=== PATIENT | female | born 1975 | race American Indian/Alaskan Native ===

== ENCOUNTER 2017-09-18 21:45 | Emergency (ER) | payer MEDICAID ==
[2017-09-18 22:50] LABS: Hematocrit 39.4 % (30.3-42.9); Hemoglobin 13.3 gm/dl (10.1-14.3); Mean Corpuscular HGB Conc 34 % (30-34); Mean Corpuscular Hemoglobin 30 pg (28-32); Mean Corpuscular Volume 89 fl (79-97); Platelet Count 207 K/mm3 (140-440); Red Blood Count 4.44 M/mm3 (3.65-5.03); Red Cell Distribution Width 13.7 % (13.2-15.2)
[2017-09-18 23:01] LABS: Alanine Aminotransferase 12 units/L (7-56); Albumin 3.6 g/dL (3.9-5); BUN/Creatinine Ratio 13; Blood Urea Nitrogen 9 mg/dL (7-17); Calcium 8.3 mg/dL (8.4-10.2); Hemolysis Index 6
[2017-09-18 23:16] LABS: Basophils % (Manual) 0 % (0.0-1.8); Total Cells Counted 100
[2017-09-18 23:17] LABS: Anisocytosis 1+
--- NOTE | 2017-09-19 00:28 | XRay Report ---
FINAL REPORT EXAM: XR CHEST ROUTINE 2V HISTORY: chest congestion COMPARISON: None available. FINDINGS:: Frontal and lateral views of the chest obtained. Cardiac silhouette is within normal limits. No focal consolidation or effusion. No pneumothorax. Visualized bony thorax is grossly intact. IMPRESSION:: No acute findings.
--- NOTE | 2017-09-19 00:29 | XRay Report ---
FINAL REPORT EXAM: XR SINUSES 3+V HISTORY: sinus congestion and drainage COMPARISON: None available. FINDINGS: Four total images the sinuses obtained. Frontal sinuses are aplastic. Mild mucosal thickening the floors of the maxillary sinuses. Sphenoid sinuses are grossly clear. IMPRESSION: Mild mucosal thickening the floors of the maxillary sinuses.
--- NOTE | 2017-09-19 07:31 | Emergency Department Report ---
HPI - General Chief Complaint: Upper Respiratory Infection Time Seen by Provider: 09/19/17 07:29 - HPI HPI: Patient reports that she's been having an sinus infection, productive greenish yellow sputum for one week. Report facial pain at 9 out of 10 and aching or pressure. Denies any headache. Denies any nausea or vomiting. Denies any shortness of breath or chest pain. Denies any fever or chills. Over-the- counter cold or cough medication taken without any relief. ED Past Medical Hx - Past Medical History Previous Medical History?: Yes Hx Liver Disease: Yes (Hepatitis B 16 Years ago) Hx Headaches / Migraines: Yes Additional medical history: Hypothyroid, Sinus Problems - Surgical History Past Surgical History?: Yes Hx Coronary Stent: No Hx Open Heart Surgery: No Hx Pacemaker: No Hx Internal Defibrillator: No Hx Cholecystectomy: No Hx Appendectomy: No Hx Breast Surgery: No Additional Surgical History: Tubaligation 2000 - Family History Family history: hypertension - Social History Smoking Status: Former Smoker Substance Use Type: None - Medications Home Medications: Home Medications Medication Instructions Recorded Confirmed Last Taken Type Azithromycin [Zithromax Tri-Rocael] 500 mg PO QAM 3 Days #3 tablet 09/19/17 Unknown Rx Cetirizine HCl [ZyrTEC] 10 mg PO QAM 14 Days #14 capsule 09/19/17 Unknown Rx Fluticasone [Flonase] 1 spray NS QDAY 14 Days #1 bottle 09/19/17 Unknown Rx Ibuprofen [Motrin] 600 mg PO Q8H PRN 4 Days #12 tablet 09/19/17 Unknown Rx guaiFENesin/CODEINE [Robitussin AC] 10 ml PO QHS PRN 5 Days #50 09/19/17 Unknown Rx oral.liqd ED Review of Systems ROS: Stated complaint: FLU SYMPTOMS Other details as noted in HPI Comment: All other systems reviewed and negative Constitutional: no symptoms reported Eyes: denies: eye pain, eye discharge ENT: congestion. denies: ear pain, throat pain Respiratory: cough. denies: orthopnea, shortness of breath, SOB with exertion, SOB at rest, stridor, wheezing Cardiovascular: denies: chest pain, palpitations, dyspnea on exertion, orthopnea , edema, syncope, paroxysmal nocturnal dyspnea Gastrointestinal: denies: abdominal pain, nausea, vomiting, diarrhea, constipation, hematemesis Musculoskeletal: myalgia. denies: back pain, joint swelling, arthralgia Skin: denies: rash Neurological: denies: headache, weakness, abnormal gait Physical Exam - Physical Exam Vital Signs: Vital Signs 09/18/17 22:03 Temperature 98.2 F Pulse Rate 78 Respiratory 16 Rate Blood Pressure 131/83 Blood Pressure 131/83 [Right] O2 Sat by Pulse 98 Oximetry Vital Signs 09/18/17 09/19/17 22:03 09:20 Temperature 98.2 F 98.1 F Pulse Rate 78 73 Respiratory 16 16 Rate Blood Pressure 131/83 Blood Pressure 131/83 151/97 [Right] O2 Sat by Pulse 98 95 Oximetry General: This is a 42-year-old female well-nourished well-developed in no acute distress. Physical Exam: Head: Normocephalic atraumatic Ears:BIateral TM congested without erythema and loss of bony landmarks. Caden EAC with normal exam. No mastoid bone tenderness. Mouth: Moist, no pharyngeal erythema or exudate . No tonsillar erythema or exudate. UVULA midline and oral airways patent. No peritonsillar abscess Neck: Nontender to palpate, supple, normal range of motion. No adenopathy. No c- spine tenderness. Nose: Bilateral nasal mucosa congested with clear drainage. Maxillary and frontal sinuses tender to palpate. Eyes: Sclerae and conjunctiva without injection. Bilateral pupils equal and reactive to light. Bilateral lids are normal. Normal accommodation.BEOMI Lungs: Clear to auscultate bilaterally, no rhonchi wheezes or rales. Normal work of breathing and no chest wall tenderness. Dry cough CV: S1, S2. Regular rate and rhythm negative murmur. Capillary refill is less than 3 seconds Skin: Clean dry and intact, no rashes or lesions Psych: Normal mood and behavior ED Course Vital Signs 09/18/17 22:03 Temperature 98.2 F Pulse Rate 78 Respiratory 16 Rate Blood Pressure 131/83 Blood Pressure 131/83 [Right] O2 Sat by Pulse 98 Oximetry Vital Signs 09/18/17 09/19/17 22:03 09:20 Temperature 98.2 F 98.1 F Pulse Rate 78 73 Respiratory 16 16 Rate Blood Pressure 131/83 Blood Pressure 131/83 151/97 [Right] O2 Sat by Pulse 98 95 Oximetry - Reevaluation(s) Reevaluation #1: 09/19/17 09:18 Patient stable throughout ED stay ED Medical Decision Making - Lab Data Result diagrams: 09/18/17 22:32 09/18/17 22:32 Vital Signs 09/18/17 22:03 Temperature 98.2 F Pulse Rate 78 Respiratory 16 Rate Blood Pressure 131/83 Blood Pressure 131/83 [Right] O2 Sat by Pulse 98 Oximetry Lab Results 09/18/17 09/18/17 Range/Units 22:32 22:32 WBC 4.4 L (4.5-11.0) K/mm3 RBC 4.44 (3.65-5.03) M/mm3 Hgb 13.3 (10.1-14.3) gm/dl Hct 39.4 (30.3-42.9) % MCV 89 (79-97) fl MCH 30 (28-32) pg MCHC 34 (30-34) % RDW 13.7 (13.2-15.2) % Plt Count 207 (140-440) K/mm3 Add Manual Diff Complete Total Counted 100 Seg Neutrophils % Hide Worker Seg Neuts % (Manual) 41.0 (40.0-70.0) % Band Neutrophils % 0 % Lymphocytes % (Manual) 48.0 H (13.4-35.0) % Reactive Lymphs % (Man) 0 % Monocytes % (Manual) 10.0 H (0.0-7.3) % Eosinophils % (Manual) 1.0 (0.0-4.3) % Basophils % (Manual) 0 (0.0-1.8) % Metamyelocytes % 0 % Myelocytes % 0 % Promyelocytes % 0 % Blast Cells % 0 % Nucleated RBC % Not Reportable Seg Neutrophils # Man 1.8 (1.8-7.7) K/mm3 Band Neutrophils # 0.0 K/mm3 Lymphocytes # (Manual) 2.1 (1.2-5.4) K/mm3 Abs React Lymphs (Man) 0.0 K/mm3 Monocytes # (Manual) 0.4 (0.0-0.8) K/mm3 Eosinophils # (Manual) 0.0 (0.0-0.4) K/mm3 Basophils # (Manual) 0.0 (0.0-0.1) K/mm3 Metamyelocytes # 0.0 K/mm3 Myelocytes # 0.0 K/mm3 Promyelocytes # 0.0 K/mm3 Blast Cells # 0.0 K/mm3 WBC Morphology Not Reportable Hypersegmented Neuts Not Reportable Hyposegmented Neuts Not Reportable Hypogranular Neuts Not Reportable Smudge Cells Not Reportable Toxic Granulation Not Reportable Toxic Vacuolation Not Reportable Dohle Bodies Not Reportable Pelger-Huet Anomaly Not Reportable Kwan Rods Not Reportable Platelet Estimate Appears normal Clumped Platelets Not Reportable Plt Clumps, EDTA Not Reportable Large Platelets Not Reportable Giant Platelets Not Reportable Platelet Satelliting Not Reportable Plt Morphology Comment Not Reportable RBC Morphology Not Reportable Dimorphic RBCs Not Reportable Polychromasia Not Reportable Hypochromasia Not Reportable Poikilocytosis Not Reportable Anisocytosis 1+ Microcytosis Not Reportable Macrocytosis Not Reportable Spherocytes Not Reportable Pappenheimer Bodies Not Reportable Sickle Cells Not Reportable Target Cells Not Reportable Tear Drop Cells Not Reportable Ovalocytes Not Reportable Helmet Cells Not Reportable Stephens-Ovett Bodies Not Reportable Ulster Rings Not Reportable Yohannes Cells Not Reportable Bite Cells Not Reportable Crenated Cell Not Reportable Elliptocytes Not Reportable Acanthocytes (Spur) Not Reportable Rouleaux Not Reportable Hemoglobin C Crystals Not Reportable Schistocytes Not Reportable Malaria parasites Not Reportable Burt Bodies Not Reportable Hem Pathologist Commnt No Sodium 141 (137-145) mmol/L Potassium 4.0 (3.6-5.0) mmol/L Chloride 103.6 (98-107) mmol/L Carbon Dioxide 28 (22-30) mmol/L Anion Gap 13 mmol/L BUN 9 (7-17) mg/dL Creatinine 0.7 (0.7-1.2) mg/dL Estimated GFR > 60 ml/min BUN/Creatinine Ratio 13 % Glucose 124 H (65-100) mg/dL Calcium 8.3 L (8.4-10.2) mg/dL Total Bilirubin 0.20 (0.1-1.2) mg/dL AST 15 (5-40) units/L ALT 12 (7-56) units/L Alkaline Phosphatase 60 (35-129) units/L Total Protein 7.0 (6.3-8.2) g/dL Albumin 3.6 L (3.9-5) g/dL Albumin/Globulin Ratio 1.1 % - Radiology Data Radiology results: report reviewed Chest x-ray revealed no acute cardiopulmonary findings. X-ray of sinuses Patient with mild mucosal thickening in the maxillary sinus - Medical Decision Making ED course: Patient here presented or respiratory symptoms. She is having nasal congestion, cough and that's been ongoing. Patient had chest x-ray which revealed no cardiopulmonary abnormality. X-ray of nasal sinuses reveal mucosal thickening in maxillary sinus. Patient with tenderness to palpate her sinus. Patient found to have sinusitis, cough coughing adult and pharyngitis. Labs with BMP for calcium at 8.3 and albumin is 3.4. Blood glucose mildly elevated at 124. CBC with white count of 4.4 which is slightly decreased.. Gusted patient that she'll need to follow up with primary care to have repeat lab work done because she has no calcium and albumin and also discussed with her her x- ray findings and diagnosis. She voiced understanding and patient discharged home with prescriptions for Zyrtec, Flonase, Tri-Rocael and guaifenesin with codeine. Critical care attestation.: If time is entered above; I have spent that time in minutes in the direct care of this critically ill patient, excluding procedure time. 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
[2017-09-19 09:21] VITALS: BP 151/97
== END 2017-09-19 09:30 | disposition home or self-care (01) ==
LOC: ED 21:45
DX: J01.90 Acute sinusitis, unspecified (principal); B96.89 Other specified bacterial agents as the cause of diseases classified elsewhere; J02.9 Acute pharyngitis, unspecified; R05 Cough; Z87.891 Personal history of nicotine dependence
CPT/HCPCS: 36415; 70220; 71046; 80053; 85007; 85025